=== PATIENT | female | born 1950 | race Caucasian/White ===

== ENCOUNTER → 2016-07-26 | Outpatient (CLI) | payer BC ==
[2016-07-26 10:47] LABS: Basophils # (A) 0.1 k/uL (0-0.2); Basophils % (A) 1 %; CH 29.2; CHCM 33.7; Eosinophils # (A) 0.1 k/uL (0-0.7); Eosinophils % (A) 4 %; HCT 41.5 % (34.0-46.0); HDW 2.55; HGB 13.5 gm/dL (11.4-16.0); Luc # (Auto) 0.08; Luc % (Auto) 2; Lymphocytes # (A) 1.1 k/uL (1.0-4.8); Lymphocytes % (A) 30 %; MCH 28.4 pg (25.0-35.0); MCHC 32.5 g/dL (31.0-37.0); MCV 87.2 fL (80.0-100.0); Mean Platelet Volume 7.4; Monocytes # (A) 0.3 k/uL (0-1.0); Monocytes % (A) 7 %; Neutrophils # (A) 2.1 k/uL (1.3-7.7); Neutrophils % (A) 57 %; RBC 4.77 m/uL (3.80-5.40); RDW 12.6 % (11.5-15.5); WBC 3.7 k/uL (3.8-10.6); WBC (Perox) 3.88
[2016-07-26 12:04] LABS: ALT 36 U/L (9-52); AST 27 U/L (14-36); Alkaline Phosphatase 68 U/L (38-126); Anion Gap 7 mmol/L; Blood Urea Nitrogen 17 mg/dL (7-17); Calcium 9.5 mg/dL (8.4-10.2); Carbon Dioxide 33 mmol/L (22-30); Chloride 102 mmol/L (98-107); Glucose 101 mg/dL (74-99); Iron 85 ug/dL (37-170); Non-African American GFR(MDRD) >60 (>60 ml/min/1.73 sqM); Potassium 4.6 mmol/L (3.5-5.1); Sodium 142 mmol/L (137-145); Total Bilirubin 0.4 mg/dL (0.2-1.3); Total Protein 6.2 g/dL (6.3-8.2)
[2016-07-26 12:14] LABS: Total Iron Binding Capacity 285 ug/dL (265-497)
[2016-07-26 12:55] LABS: Vitamin B12 645 pg/mL (239-931)
== END | disposition home or self-care (01) ==
LOC: LABWHC1 10:06
PROVIDERS: ATTEND Family Medicine
DX: M85.9 Disorder of bone density and structure, unspecified (principal); D51.9 Vitamin B12 deficiency anemia, unspecified; I10 Essential (primary) hypertension
CPT/HCPCS: 36415; 80053; 82306; 82607; 83540; 83550; 84439; 84443; 85025

== ENCOUNTER 2016-09-18 12:27 | Emergency (ER) | payer BC ==
[2016-09-18 12:38] VITALS: RESP 18
--- NOTE | 2016-09-18 13:45 | ED ---
General Adult HPI - General Chief complaint: Neuro Symptoms/Deficit Stated complaint: Hand/Facial Numbness Time Seen by Provider: 09/18/16 13:11 Source: patient Mode of arrival: ambulatory Limitations: no limitations - History of Present Illness Initial comments: 6-year-old white female presents complaining of some bilateral hand numbness and tingling as well as some numbness and tingling around her chin and lips. The symptoms have been present for approximately one week. She denies any weakness of extremities, problems with ambulation, coordination, speech abnormalities, or vision abnormalities. She denies any other neurologic signs or symptoms. She states that she was on Levaquin this past week for sinus infection and stopped this 3 days ago but her symptoms still have persisted. She was unsure if it was related to the Levaquin. She also has had some mild nausea but no vomiting. She relates a history of insomnia. She was taking Klonopin 2 mg every at bedtime for this but stopped 2 months ago. Since that time she is only beginning 2-3 hours of sleep per night. She did try some trazodone yesterday but still only had 3 hours of sleep. She denies any other complaints or modifying factors. She denies any anxiety. She did have an MRI of her neck and brain proximally 6 months ago and brings a report with her. This does show evidence of a arachnoid cyst as well as degenerative changes of the cervical spine and chronic small vessel ischemic changes of the brain. - Related Data Allergies Allergy/AdvReac Type Severity Reaction Status Date / Time latex Allergy Unknown Verified 09/18/16 14:43 Review of Systems ROS Statement: Those systems with pertinent positive or pertinent negative responses have been documented in the HPI. ROS Other: All systems not noted in ROS Statement are negative. Past Medical History Past Medical History: Hypertension Additional Past Medical History / Comment(s): mitral valve prolapse sleeping issues History of Any Multi-Drug Resistant Organisms: None Reported Past Surgical History: Orthopedic Surgery Additional Past Surgical History / Comment(s): shoulder/rotator cuff Past Psychological History: No Psychological Hx Reported Smoking Status: Never smoker Past Alcohol Use History: Rare Past Drug Use History: None Reported General Exam - General Exam Comments Initial Comments: GENERAL: The patient is well nourished and well hydrated. VITAL SIGNS: Heart rate, blood pressure, respiratory rate reviewed as recorded in nurse's notes. EYES: Pupils are round and reactive. Extraocular movements are intact. No conjunctival / lid redness or swelling. ENT: No external evidence of injury, swelling, or ecchymosis. Airway is patent. Throat is clear. NECK: Mild tenderness to her neck diffusely which is chronic per patient. No swelling or evidence of injury. No subcutaneous emphysema. Trachea is midline. No thyroid mass. HEART: Regular rate and rhythm. Good peripheral pulses. LUNGS/CHEST: Breath sounds clear and equal bilaterally. No rales, rhonchi, or wheezes. No ecchymosis, subcutaneous emphysema, or tenderness. ABDOMEN: Abdomen soft without tenderness. No palpable masses or organomegaly. No peritoneal signs. No abdominal wall swelling or ecchymosis. EXTREMITIES: No extremity tenderness. Normal muscle tone and function. No thoracolumbar tenderness. There is some subjective numbness in the perioral region and bilateral hands. NEUROLOGIC: Sensation is grossly intact. Cranial nerve exam reveals face is symmetrical, tongue is midline, speech is clear. SKIN: No abrasions or ecchymosis is noted. No induration or masses noted. PSYCHIATRIC: Alert and oriented. Appropriate behavior and judgment. Limitations: no limitations Course Vital Signs 09/18/16 12:34 Temperature 99.3 F Pulse Rate 64 Respiratory 18 Rate Blood Pressure 128/59 O2 Sat by Pulse 96 Oximetry Medical Decision Making - Medical Decision Making The patient was seen and examined. All diagnostics were reviewed. EKG shows a sinus bradycardia at a rate of 56. There is no acute ST-T wave changes identified. There is a left axis deviation and nonspecific intraventricular block. The UT interval is 204, QRS duration is 132, and QTc interval is 463. The laboratory is reviewed and is fairly unremarkable. The computed tomography scan of the brain did not show any acute process. The exact cause of her paresthesias are not definitively determined. It may be playing into anxiety as well as her insomnia. Is felt as though she is stable for discharge and follow-up with her primary doctor. Is also felt as though she may benefit from neurology evaluation. She apparently did try to get into a neurologist but there is a 2 month weight. They are requesting additional neurologist to attempt to follow-up with sooner. - Lab Data Result diagrams: 09/18/16 13:35 09/18/16 13:35 Lab Results 09/18/16 09/18/16 Range/Units 13:35 13:35 WBC 5.3 (3.8-10.6) k/uL RBC 4.73 (3.80-5.40) m/uL Hgb 13.9 (11.4-16.0) gm/dL Hct 41.1 (34.0-46.0) % MCV 87.0 (80.0-100.0) fL MCH 29.5 (25.0-35.0) pg MCHC 33.9 (31.0-37.0) g/dL RDW 12.9 (11.5-15.5) % Plt Count 205 (150-450) k/uL Neutrophils % 59 % Lymphocytes % 28 % Monocytes % 6 % Eosinophils % 3 % Basophils % 1 % Neutrophils # 3.1 (1.3-7.7) k/uL Lymphocytes # 1.5 (1.0-4.8) k/uL Monocytes # 0.3 (0-1.0) k/uL Eosinophils # 0.2 (0-0.7) k/uL Basophils # 0.0 (0-0.2) k/uL Sodium 140 (137-145) mmol/L Potassium 4.8 (3.5-5.1) mmol/L Chloride 100 (98-107) mmol/L Carbon Dioxide 31 H (22-30) mmol/L Anion Gap 9 mmol/L BUN 14 (7-17) mg/dL Creatinine 0.86 (0.52-1.04) mg/dL Est GFR (MDRD) Af Amer >60 (>60 ml/min/1.73 sqM) Est GFR (MDRD) Non-Af >60 (>60 ml/min/1.73 sqM) Glucose 92 (74-99) mg/dL Calcium 9.5 (8.4-10.2) mg/dL Phosphorus 4.3 (2.5-4.5) mg/dL Magnesium 2.2 (1.6-2.3) mg/dL Total Bilirubin 0.6 (0.2-1.3) mg/dL AST 29 (14-36) U/L ALT 26 (9-52) U/L Alkaline Phosphatase 72 (38-126) U/L Total Protein 6.9 (6.3-8.2) g/dL Albumin 4.3 (3.5-5.0) g/dL Disposition Clinical Impression: Paresthesias, Insomnia Disposition: HOME SELF-CARE Condition: Good Instructions: Paresthesia (ED), Insomnia (ED) Additional Instructions: You also may try to follow up with either Dr. Ortiz or Dr. Maki from neurology and see if you can get in sooner. You may call to be transferred to their office. Referrals: Terri Sun MD [Primary Care Provider] - 1-2 days Heather Pino MD [STAFF PHYSICIAN] - 09/22/16 Time of Disposition: 14:44
[2016-09-18 13:53] LABS: Basophils % (A) 1 %; CH 29.7; CHCM 34.3; Eosinophils # (A) 0.2 k/uL (0-0.7); Eosinophils % (A) 3 %; HCT 41.1 % (34.0-46.0); HDW 2.53; HGB 13.9 gm/dL (11.4-16.0); Luc # (Auto) 0.19; Luc % (Auto) 4; Lymphocytes # (A) 1.5 k/uL (1.0-4.8); Lymphocytes % (A) 28 %; MCH 29.5 pg (25.0-35.0); MCHC 33.9 g/dL (31.0-37.0); Mean Platelet Volume 7.6; Monocytes # (A) 0.3 k/uL (0-1.0); Monocytes % (A) 6 %; Neutrophils # (A) 3.1 k/uL (1.3-7.7); Neutrophils % (A) 59 %; RBC 4.73 m/uL (3.80-5.40); RDW 12.9 % (11.5-15.5); WBC 5.3 k/uL (3.8-10.6); WBC (Perox) 5.44
--- NOTE | 2016-09-18 13:58 | CT ---
EXAMINATION TYPE: CT brain wo con DATE OF EXAM: 09/18/2016 1:49 PM COMPARISON: NONE HISTORY: Patient complains of bilateral hand, chin, and lip numbness. CT DLP: 1001.8 mGycm. Automated Exposure Control for Dose Reduction was Utilized. TECHNIQUE: CT scan of the head is performed without contrast. FINDINGS: There is no acute intracranial hemorrhage, mass effect, or midline shift identified. The ventricles and sulci are within normal limits in size. Burgos-white matter differentiation is maintain ed. The globes are intact and the visualized sinuses are clear. IMPRESSION: No acute intracranial hemorrhage, mass effect, or midline shift is seen. If clinical con cern for acute stroke persists further investigation with MRI study may be warranted.
[2016-09-18 14:02] LABS: ALT 26 U/L (9-52); AST 29 U/L (14-36); Alkaline Phosphatase 72 U/L (38-126); Anion Gap 9 mmol/L; Blood Urea Nitrogen 14 mg/dL (7-17); Calcium 9.5 mg/dL (8.4-10.2); Carbon Dioxide 31 mmol/L (22-30); Chloride 100 mmol/L (98-107); Glucose 92 mg/dL (74-99); Magnesium 2.2 mg/dL (1.6-2.3); Non-African American GFR(MDRD) >60 (>60 ml/min/1.73 sqM); Phosphorous 4.3 mg/dL (2.5-4.5); Potassium 4.8 mmol/L (3.5-5.1); Sodium 140 mmol/L (137-145); Total Bilirubin 0.6 mg/dL (0.2-1.3); Total Protein 6.9 g/dL (6.3-8.2)
[2016-09-18 15:03] VITALS: BP 152/75; PULSE 67; TEMP 97.6
== END 2016-09-18 15:03 | disposition home or self-care (01) ==
LOC: EC 12:27
DX: G47.00 Insomnia, unspecified (principal); R20.2 Paresthesia of skin; R00.1 Bradycardia, unspecified; I45.4 Nonspecific intraventricular block; I10 Essential (primary) hypertension; I34.1 Nonrheumatic mitral (valve) prolapse; Z79.899 Other long term (current) drug therapy; Z91.040 Latex allergy status
CPT/HCPCS: 36415; 70450; 80053; 83735; 84100; 85025; 93005; 99284

== ENCOUNTER → 2016-10-04 | Outpatient (CLI) | payer BC ==
--- NOTE | 2016-10-04 15:40 | US ---
EXAMINATION TYPE: US carotid duplex BILAT DATE OF EXAM: 10/04/2016 3:13 PM COMPARISON: NONE CLINICAL HISTORY: R20.0 FACIAL NUMBNESS. bilateral hand numbness EXAM MEASUREMENTS: RIGHT: Peak Systolic Velocity (PSV) cm/sec ----- Right CCA: 101.1 ----- Right ICA: 114.2 ----- Right ECA: 116.0 ICA/CCA ratio: 1.1 RIGHT: End Diastole cm/sec ----- Right CCA: 31.4 ----- Right ICA: 35.7 ----- Right ECA: 116.0 LEFT: Peak Systolic Velocity (PSV) cm/sec ----- Left CCA: 84.5 ----- Left ICA: 87.5 ----- Left ECA: 82.0 ICA/CCA ratio: 1.0 LEFT: End Diastole cm/sec ----- Left CCA: 25.9 ----- Left ICA: 35.7 ----- Left ECA: 13.8 VERTEBRALS (direction of flow): Right Vertebral: Antegrade Left Vertebral: Antegrade TECHNOLOGIST IMPRESSION: No significant stenosis seen, no elevated velocities. Grayscale, color Doppler, spectral Doppler imaging performed of the carotid arteries. Waveform analys is does not show significant stenosis of the proximal internal carotid arteries by Doppler criteria. IMPRESSION: No hemodynamic significant stenosis of the proximal internal carotid arteries bilaterall y by Doppler criteria, an indirect measurement of carotid stenosis
== END | disposition home or self-care (01) ==
LOC: RADUSWWP 14:53
PROVIDERS: ATTEND Psychiatry & Neurology Neurology
DX: R20.0 Anesthesia of skin (principal)
CPT/HCPCS: 93880

== ENCOUNTER → 2016-10-04 | Outpatient (CLI) | payer BC ==
--- NOTE | 2016-10-04 14:55 | CONS ---
DATE OF CONSULTATION: 10/04/2016 CONSULTATION/NEW PATIENT EVALUATION: A 66-year-old lady who has been evaluated in the [facility] for sleep problems. HISTORY OF PRESENT ILLNESS/SLEEP-WAKE EVALUATION: Patient developed her sleep problems for about 5 years. At that time, she already was in a menopause state. SLEEP SCHEDULE: Presently, she goes to bed around 11 p.m. and gets up out of bed around 7 - 8 a.m. FALLING ASLEEP: She has problem with falling asleep, previously was treated with clonazepam with a pretty high dose up to 2 mg and presently for the last 10 days she is on Temazepam. With Temazepam she was able to fall asleep well now. DURING SLEEP: She does not snore according to her but sometimes may wake up several times during the night. DURING THE DAY/WAKE STATE: Usually she feels tired in the morning. She worries about her sleep. She normally does not take any naps during the day. No history of hypnagogical hallucinations, sleep paralysis or cataplexy. [place] Sleepiness Scale is 2. PAST MEDICAL HISTORY: Positive for mitral valve prolapse, LBBB, shoulder problems. PAST SURGICAL HISTORY: Right shoulder rotator cuff surgery on 05/23/2016. SOCIAL HISTORY: Negative for smoking. Alcohol consumption occasional. MEDICATIONS: 1. Atenolol. 2. Prempro. 3. Temazepam. REVIEW OF SYSTEMS: Difficulties to initiate sleep, awakenings from sleep. sometimes feeling tiredness after awakenings in the morning. FAMILY HISTORY: Hypertension, arthritis, cancer. PHYSICAL EXAMINATION: GENERAL: A 66-year-old ago lady without distress. BP 137/68, HR 57, RR 16. Height 64 inches. Weight 128.2. BMI 21.9. Neck 13-1/2 inches in circumference. Temperature 97.5. Oxygen saturation at room air 100%. Oropharynx retrognathia 4 mm, low position of soft palate. NECK: Supple. No JVD. Thyroid is not palpable. LUNGS: Clear to percussion and to auscultation. Good air exchange. No wheezing or rhonchi. HEART: S1, S2 regular. No murmurs, gallops or rubs. ABDOMEN: Soft and nontender. Bowel sounds are present. No organomegaly appreciated. EXTREMITIES: No clubbing or cyanosis. MORTGAGE LOAN REVIEWER: Awake, alert, and oriented x3. Cranial nerves 2 to 7 intact. There is no fasciculation or atrophy noted. No focal deficits observed. IMPRESSION: 1. Psychophysiological insomnia. 2. Low position of soft palate, retrognathia, awakenings from sleep, rule out obstructive sleep apnea. 3. Menopause. 4. Mitral valve prolapse. 5. History of LBBB. 6. Status post right rotator cuff surgery on 05/23/16. PLAN: 1. I discussed with the patient behavioral techniques for treatment of insomnia, including stimulus control. 2. Paradoxical intention. 3. Worry time. 4. Sleep restriction therapy. Patient should not watch clock during the night. We discussed to use additional literature. Thank you very much for referring this patient for consultation. Sincerely, Pipo Harris MD, PhD, FAASM. Diplomat of [place] [employer], Sleep Medicine Board by [place] [employer] [place] [employer] [facility] [place]
== END | disposition home or self-care (01) ==
LOC: SLEEP 10:02
PROVIDERS: ATTEND Internal Medicine
DX: F51.04 Psychophysiologic insomnia (principal); I34.1 Nonrheumatic mitral (valve) prolapse; I44.7 Left bundle-branch block, unspecified; Z78.0 Asymptomatic menopausal state; Z79.899 Other long term (current) drug therapy
CPT/HCPCS: 99211

== ENCOUNTER → 2016-11-10 | Outpatient (CLI) | payer BC ==
[2016-11-10 08:33] LABS: Basophils % (A) 1 %; CH 29.2; CHCM 33.6; Eosinophils # (A) 0.2 k/uL (0-0.7); Eosinophils % (A) 5 %; HCT 40.3 % (34.0-46.0); HDW 2.36; HGB 13.3 gm/dL (11.4-16.0); Luc # (Auto) 0.14; Luc % (Auto) 3; Lymphocytes # (A) 1.4 k/uL (1.0-4.8); Lymphocytes % (A) 30 %; MCH 28.9 pg (25.0-35.0); MCV 87.4 fL (80.0-100.0); Mean Platelet Volume 6.8; Monocytes # (A) 0.3 k/uL (0-1.0); Monocytes % (A) 6 %; Neutrophils # (A) 2.5 k/uL (1.3-7.7); Neutrophils % (A) 55 %; RBC 4.61 m/uL (3.80-5.40); RDW 12.8 % (11.5-15.5); WBC 4.6 k/uL (3.8-10.6); WBC (Perox) 4.58
[2016-11-10 11:44] LABS: Vitamin B12 351 pg/mL (239-931)
[2016-11-10 12:05] LABS: ALT 31 U/L (9-52); AST 31 U/L (14-36); Alkaline Phosphatase 74 U/L (38-126); Anion Gap 7 mmol/L; Blood Urea Nitrogen 12 mg/dL (7-17); Calcium 9.6 mg/dL (8.4-10.2); Carbon Dioxide 32 mmol/L (22-30); Chloride 102 mmol/L (98-107); Cholesterol 203 mg/dL (<200); Glucose 101 mg/dL (74-99); HDL Cholesterol 64 mg/dL (40-60); Non-African American GFR(MDRD) 53 (>60 ml/min/1.73 sqM); Potassium 4.9 mmol/L (3.5-5.1); Sodium 141 mmol/L (137-145); Total Bilirubin 0.7 mg/dL (0.2-1.3); Total Protein 6.9 g/dL (6.3-8.2); Triglycerides 113 mg/dL (<150)
[2016-11-10 12:53] LABS: Iron 93 ug/dL (37-170)
[2016-11-10 13:02] LABS: % Iron Saturation 30.8 % (20-50); Total Iron Binding Capacity 302 ug/dL (265-497)
== END ==
LOC: LABWHC1 07:51
PROVIDERS: ATTEND Nurse Practitioner Family
DX: F51.01 Primary insomnia (principal); I10 Essential (primary) hypertension; D51.9 Vitamin B12 deficiency anemia, unspecified
CPT/HCPCS: 36415; 80053; 80061; 82607; 83540; 83550; 84439; 84443; 85025

== ENCOUNTER → 2016-11-24 | Outpatient (CLI) | payer BC ==
[2016-11-24 15:35] LABS: ANA w/Reflex to Titer POSITIVE (NEGATIVE)
[2016-11-27 15:25] LABS: C-ANCA <1:20 Titer (<1:20); P-ANCA <1:20 Titer (<1:20)
== END | disposition home or self-care (01) ==
LOC: LABWHC1 07:06
PROVIDERS: ATTEND Nurse Practitioner Family
DX: J01.91 Acute recurrent sinusitis, unspecified (principal); J31.1 Chronic nasopharyngitis
CPT/HCPCS: 36415; 84165; 86038; 86039; 86235; 86255; 86334

== ENCOUNTER → 2016-11-30 | Outpatient (CLI) | payer BC ==
--- NOTE | 2016-11-30 14:07 | FL ---
EXAMINATION: Cervical and Thoracic Esophagram DATE OF EXAM: 11/30/2016 10:11 AM CLINICAL INDICATION: 66-year-old female with her somatoform disorder. Difficulty swallowing last week , improved now. COMPARISON: None Total Fluoroscopy Time: 1 minute 42 seconds FINDINGS: The swallowing mechanism is normal and hypopharyngeal anatomy is preserved. The cervical and thoracic portions have a normal course and caliber. There are blunted secondary wave s with prolonged pooling of contrast within the esophagus even when the patient is brought upright. M oderate tertiary peristaltic contractions are demonstrated. The mucosa is normal and no persistent filling defect is encountered. No hiatal hernia is present. No gastroesophageal reflux could be elicited with Valsalva or positiona l maneuvers. IMPRESSION: Findings suggest early presbyesophagus. This results in prolonged pooling of contrast in the esophagu s even with the patient is brought upright.
== END | disposition home or self-care (01) ==
LOC: RADFLWHC 09:38
PROVIDERS: ATTEND Otolaryngology
DX: R13.10 Dysphagia, unspecified (principal)
CPT/HCPCS: 74220

== ENCOUNTER 2016-12-07 09:01 | Day surgery (SDC) | payer BC ==
[2016-12-01 11:26] VITALS: BMI 20.7
[~2016-12-07 09:01] MED LIST: ACETAMINOPHEN TAB 500 MG TAB PO ONE; DEXAMETHASONE SOD PHOSPHATE 10 MG/ML 1 ML VIAL IV ONE; DEXAMETHASONE SOD PHOSPHATE 4 MG/ML 1 ML VIAL IV ONE; FAMOTIDINE 20 MG/2 ML VIAL IV ONE; LACTATED RINGERS 1,000 ML IV SCH; LIDOCAINE 1% 20 ML VIAL (10MG/ML) FOR IV START INTRADERMA PRN; MIDAZOLAM 2 MG/2 ML VIAL IV PRN; ONDANSETRON 4 MG/2 ML VIAL IVP ONE; SCOPOLAMINE 1.5MG/72HR PATCH TRANSDERM ONE
[2016-12-07] MEDS: OXYMETAZOLINE 0.05% NASL SPRAY 15 ML NASAL ONE ×3 (09:17→09:43)
[2016-12-07] MEDS: CLINDAMYCIN 600 MG in DEXTROSE 5% IN WATER 50 ML IVPB ONE ×4 (10:36→11:10)
[2016-12-07] MEDS ORDERED: MIDAZOLAM 2 MG/2 ML VIAL ONE (10:36)
[2016-12-07] MEDS ORDERED: PROPOFOL 10 MG/ML 20 ML VIAL IV ONE (10:36)
[2016-12-07] MEDS ORDERED: ePHEDrine 50 MG/ML 1 ML AMP ONE (10:36)
[2016-12-07] MEDS ORDERED: fentaNYL (PF) 50 MCG/ML 2 ML AMP ONE (10:36)
[2016-12-07] MEDS ORDERED: DEXAMETHASONE SOD PHOS (MDV) 100 MG/10 ML VIAL ONE (10:36)
[2016-12-07] MEDS ORDERED: LIDOCAINE 1% INJ 10MG/ML (20 ML MDV) ONE (10:36)
[2016-12-07] MEDS ORDERED: SUCCINYLCHOLINE CHLORIDE 100 MG/5 ML SYR IV ONE (10:36)
[2016-12-07] MEDS ORDERED: LIDOCAINE 1%-EPI 1:100,000 20 ML VIAL SQ ONE ×2 (11:37)
[2016-12-07] MEDS ORDERED: BUPIVACAIN-EPI 0.5%-1:200,000 30 ML VIAL SQ ONE ×2 (11:37)
[2016-12-07] MEDS ORDERED: FLUORESCEIN STRIPS 1 MG STRIP MISCELLANE ONE (11:38)
[2016-12-07] MEDS ORDERED: EPINEPHrine 1 MG/ML (MDV) 30 ML VIAL TOPICAL ONE (11:38)
[2016-12-07] MEDS ORDERED: LACTATED RINGERS 1,000 ML IV ONE (11:47)
[2016-12-07 12:30] VITALS: TEMP 97.1
[2016-12-07 12:32] VITALS: RESP 16
[2016-12-07] MEDS: HYDROmorphone 1 MG/ML 1 ML SYRINGE IVP PRN ×2 (12:47→12:58)
--- NOTE | 2016-12-07 12:47 | P.OP ---
Date of Procedure: 12/07/16 Preoperative Diagnosis: Deviated nasal septum Chronic sinusitis Bilateral hypertrophy of nasal turbinates left maxillary sinus polyp Postoperative Diagnosis: Same Procedure(s) Performed: Septoplasty Bilateral submucosal resection of the inferior turbinates with outfracture Bilateral functional endoscopic sinus surgery with removal of a left maxillary sinus polyp Implants: Anesthesia: DASHAA Surgeon: Eliezer Torres Estimated Blood Loss (ml): 20 Pathology: other (Sinonasal with a left maxillary sinus polyp) Condition: stable Disposition: PACU Indications for Procedure: This patient presented to the office with persistent sinusitis he has facial pain pressure drainage left maxillary sinus polyp chronic sinus disease patient also has a mucosal contact point-type headache with the septal spur and her problems have been persistent. In spite of medical therapy trigeminal nerve injections etc. her problems are persistent. After long discussion we decided to proceed forward with endoscopic sinus surgery with removal of a left maxillary sinus polyp septoplasty and turbinate surgery. All risks, benefits, and alternative therapies were discussed in detail. The patient also has anosmia and is hoping that this helps her sense of smell. She is also understanding that the facial pain may persist after surgery in spite of opening the sinuses. She understands all these issues and consent was obtained. Operative Findings: Patient had a left maxillary sinus polyp a large left septal spur that was coming in contact is a mucosal contact point and evidence of widespread inflammatory changes. Description of Procedure: This patient was taken to the operative room and placed in the supine position. A general inhalation anesthetic was administered to the patient by the department of anesthesia with a functioning IV line in place. The patient was monitored throughout the entire case by the department of anesthesia. The eyes were taped shut for protection. The patient was placed in a slight reverse Trendelenburg position. The patient had previously utilize Afrin nasal spray preoperatively. The nose was evaluated and the septum lateral nasal wall and inferior turbinates were injected with lidocaine 1% with epinephrine 1 100,000 bilaterally. Approximately 10 minutes were allowed wait for full vasoconstrictive effects to take place. At this point a caudal incision was made over the caudal portion of the left septum down to the mucoperichondrium. A mucoperichondrial flap was elevated on the left side and dissection was carried with use of tunnels posteriorly. We then made a crossover incision through the cartilage to the contralateral side and for the mucoperichondrial flap development was performed to the extent of visualization on the contralateral side. After the cartilage was freed with use of several crosshatching incisions and removal of some redundant strips of septal cartilage, the septum was straightened and placed back in the midline. The septum was sutured fixated to the ovarian groove. Excellent straightening occurred and the septum was visibly straight. Incision was closed with a 40 rapid Vicryl. We utilized a running nonlocking fashion for closure of the incision. A quilting stitch was used to reapproximate the septal flaps with use of a 40 rapid Vicryl. We then entered the nose with a 0 and 30 Gomes rosalind endoscope. Previous to this we did inject the lateral nasal wall and middle turbinate and uncinate process with lidocaine 1% with epinephrine 1 100,000. Approximately 10 minutes were allowed wait for full vasoconstrictive effects to take place. With use of a microdebrider and a pediatric backbiter, we took down the uncinate process bilaterally. We then opened the maxillary sinuses bilaterally. We utilized a microdebrider for this and entered the maxillary sinuses and removed diseased tissue. This was done bilaterally. We identified a left maxillary polyp and remove that polyp. After the maxillary sinuses were opened and the diseased tissue was removed we entered the ethmoid bulla and with use of a microdebrider and up-biting saads and Vish, we followed the fovea frontalis through the basal lamella and into the posterior ethmoid air cells and did a total ethmoidectomy. We removed the anterior ethmoid air cells with use of a microdebrider and up-biting boss. After all the anterior ethmoid air cells were removed we did the same in the posterior ethmoid. A total ethmoidectomy was completed in that fashion with removal of all the anterior and posterior ethmoid air cells and diseased tissue. Once the ethmoids cells were all taken down we then entered the sphenoid sinus medially and inferiorly underneath the inferior attachment of the superior turbinate. The sphenoid sinus was opened entered and diseased tissue was removed bilaterally. This was done with a microdebrider and Blakesley. We then entered the frontal sinuses with a giraffe and up-biting Blakesley entered on the agar nasi cells. We open the frontal sinuses and removed sinus tissue that was diseased. We explored the frontal sinuses bilaterally. To summarize all sinuses were open all sinuses were explored and we remove diseased tissue from the sphenoid maxillary and frontal sinuses. Ethmoid sinuses were opened totally. Xerogel was inserted and minimal bleeding was encountered. We reinspected the skull base there is no signs of any orbital penetration or signs of any intracranial penetration. The sugical site was reinspected after the xerogel was placed and no bleeding was seen. Intranasal splints were inserted and fixated at the end of the case. We utilized Kelly nasal splints. There will be removed and the patient returns to the office. Attention was then paid to the inferior turbinates. The bilateral inferior turbinates were hypertrophic and obstructive. We entered the anterior portion of the inferior turbinates with use of a microdebrider. We remove bone and submucosal elements with use of a microdebrider bilaterally. The inferior turbinates underwent a submucosal resection with removal of submucosal tissue and bone. We obtained a much better and normal in size for breathing. The inferior turbinates were then outfractured and compressed with a Boyes nasal elevator. Excellent airway was obtained and was symmetric bilaterally. No bleeding was encountered.
[2016-12-07] MEDS ORDERED: OXYMETAZOLINE 0.05% NASL SPRAY 15 ML ONE (14:01)
[2016-12-07 14:23] VITALS: BP 132/72; PULSE 81
== END 2016-12-07 15:17 | disposition home or self-care (01) ==
LOC: OR 09:01
PROVIDERS: ATTEND Otolaryngology
DX: J34.2 Deviated nasal septum (principal); J32.9 Chronic sinusitis, unspecified; J34.3 Hypertrophy of nasal turbinates; J33.8 Other polyp of sinus; J34.89 Other specified disorders of nose and nasal sinuses; I10 Essential (primary) hypertension; Z79.899 Other long term (current) drug therapy; Z91.040 Latex allergy status
CPT/HCPCS: 88305; 88300; 30520; 31267; 31255; 31288; 31276; 30140; J0171; J2250; J1100 ×2; J2405; J2001; J3010; J1170; J0330; J2704

== ENCOUNTER → 2017-01-12 | Outpatient (CLI) | payer BC | END | disposition home or self-care (01) | LOC: LABWHC1 12:40 | PROVIDERS: ATTEND Internal Medicine Infectious Disease | DX: D80.1 Nonfamilial hypogammaglobulinemia (principal) | CPT/HCPCS: 36415; 82164; 82784; 85652 ==

== ENCOUNTER → 2017-02-26 | Outpatient (CLI) | payer BC ==
[2017-02-26 17:48] LABS: RNP AB Interpretation POSITIVE (NEGATIVE); Scleroderma SC-70 Ab Interp NEGATIVE (NEGATIVE)
== END | disposition home or self-care (01) ==
LOC: LABWHC1 10:30
PROVIDERS: ATTEND Family Medicine
DX: F51.01 Primary insomnia (principal); D80.1 Nonfamilial hypogammaglobulinemia
CPT/HCPCS: 36415; 82607; 84165; 86235

== ENCOUNTER → 2017-03-29 | Outpatient (CLI) | payer BC, MEDICARE ==
--- NOTE | 2017-03-30 09:28 | MM ---
Reason for exam: screening (asymptomatic). Last mammogram was performed 1 year and 2 months ago. History: Patient is postmenopausal. Benign ultrasound-guided FNA biopsy of the right breast, May 14, 2007. Benign US right guided mammotome of the right breast, May 14, 2007. Benign stereotactic core biopsy of the right breast, August 19, 1999. Core biopsy of the right breast. 2 excisional biopsies of the right breast. Took estrogen. Took progesterone beginning at age 53. Taking other hormone for 1 month beginning at age 58. Physical Findings: A clinical breast exam by your physician is recommended on an annual basis and results should be correlated with mammographic findings. MG 3D Screening Mammo W/Cad Bilateral CC and MLO view(s) were taken. Prior study comparison: January 27, 2016, bilateral MG 3d screening mammo w/cad. December 24, 2014, bilateral MG screening mammo w CAD. The breast tissue is extremely dense which could obscure a lesion on mammography. Previous mammotome biopsy in the right breast x 2. No significant changes when compared with prior studies. ASSESSMENT: Benign, BI-RAD 2 RECOMMENDATION: Routine screening mammogram of both breasts in 1 year.
== END | disposition home or self-care (01) ==
LOC: RADMAMWWP 09:44
PROVIDERS: ATTEND Obstetrics & Gynecology
DX: Z12.31 Encounter for screening mammogram for malignant neoplasm of breast (principal)
CPT/HCPCS: 77063; G0202

== ENCOUNTER → 2017-11-06 | Outpatient (CLI) | payer MEDICARE ==
[2017-11-06 09:43] LABS: Basophils % (A) 1 %; Eosinophils # (A) 0.2 k/uL (0-0.7); Eosinophils % (A) 3 %; HCT 40.7 % (34.0-46.0); HGB 13.8 gm/dL (11.4-16.0); Lymphocytes # (A) 1.2 k/uL (1.0-4.8); Lymphocytes % (A) 27 %; MCH 28.7 pg (25.0-35.0); MCHC 33.8 g/dL (31.0-37.0); Mean Platelet Volume 6.9; Monocytes # (A) 0.2 k/uL (0-1.0); Monocytes % (A) 5 %; Neutrophils # (A) 2.6 k/uL (1.3-7.7); Neutrophils % (A) 60 %; Platelet Count 213 k/uL (150-450); RBC 4.79 m/uL (3.80-5.40); RDW 12.9 % (11.5-15.5); WBC 4.4 k/uL (3.8-10.6)
[2017-11-06 09:53] LABS: Albumin 4.2 g/dL (3.5-5.0); Calcium 9.3 mg/dL (8.4-10.2); Potassium 4.5 mmol/L (3.5-5.1); Total Bilirubin 0.5 mg/dL (0.2-1.3); Total Protein 6.4 g/dL (6.3-8.2)
[2017-11-06 10:07] LABS: T4, Free (Free Thyroxine) 0.93 ng/dL (0.78-2.19)
[2017-11-06 15:59] LABS: Vitamin D 25 Hydroxy 24.9 ng/mL (30.0-100.0)
== END | disposition home or self-care (01) ==
LOC: LABWHC1 08:44
PROVIDERS: ATTEND Family Medicine
DX: M85.9 Disorder of bone density and structure, unspecified (principal); F51.01 Primary insomnia; N18.2 Chronic kidney disease, stage 2 (mild); I12.9 Hypertensive chronic kidney disease with stage 1 through stage 4 chronic kidney disease, or unspecified chronic kidney disease
CPT/HCPCS: 36415; 80053; 80061; 82306; 82550; 82607; 84439; 84443; 85025

== ENCOUNTER → 2018-04-01 | Outpatient (CLI) | payer MEDICARE ==
--- NOTE | 2018-04-02 09:26 | MM ---
Reason for exam: screening (asymptomatic). Last mammogram was performed 1 year ago. History: Patient is postmenopausal. Benign ultrasound-guided FNA biopsy of the right breast, May 14, 2007. Benign US right guided mammotome of the right breast, May 14, 2007. Benign stereotactic core biopsy of the right breast, August 19, 1999. Core biopsy of the right breast. 2 excisional biopsies of the right breast. Took estrogen. Took progesterone beginning at age 53. Taking other hormone for 1 month beginning at age 58. Physical Findings: A clinical breast exam by your physician is recommended on an annual basis and results should be correlated with mammographic findings. MG 3D Screening Mammo W/Cad Bilateral CC and MLO view(s) were taken. Prior study comparison: March 29, 2017, bilateral MG 3d screening mammo w/cad. January 27, 2016, bilateral MG 3d screening mammo w/cad. The breast tissue is heterogeneously dense. This may lower the sensitivity of mammography. No significant changes when compared with prior studies. ASSESSMENT: Benign, BI-RAD 2 RECOMMENDATION: Routine screening mammogram of both breasts in 1 year.
== END | disposition home or self-care (01) ==
LOC: RADMAMWWP 08:53
PROVIDERS: ATTEND Obstetrics & Gynecology
DX: Z12.31 Encounter for screening mammogram for malignant neoplasm of breast (principal)
CPT/HCPCS: 77063; 77067

== ENCOUNTER → 2018-07-04 | Outpatient (CLI) | payer MEDICARE ==
--- NOTE | 2018-07-04 12:09 | BD ---
EXAMINATION TYPE: Axial Bone Density DATE OF EXAM: 07/04/2018 CLINICAL HISTORY: Height: 64 inches Weight: 124 FRAX RISK QUESTIONS: Alcohol (3 or more units per day): no Family History (Parent hip fracture): no Glucocorticoids (More than 3mos): no (Ex: prednisone, prednisolone, methylprednisolone, dexamethasone, and hydrocortisone). History of Fracture in Adulthood: no Secondary Osteoporosis: 1. Type 1 Diabetes: no 2. Hyperthyroidism: no 3. Menopause before 45: no 4. Malnutrition: no 5. Chronic liver disease: no Rheumatoid Arthritis: no Current Tobacco Use: no RISK FACTORS HISTORY OF: Family History of Osteoporosis: unsure Active: yes Diet low in dairy products/other sources of calcium: no Postmenopausal woman: yes Take estrogen and/or progesterone medications: not now How long: about age [age] Lost more than 2 inches in height since high school: no Frequent falls: no Poor Health: no Hyperparathyroidism: no Adrenal Insufficiency: no MEDICATIONS: Osteoporosis Medications: no Additional Medications: Vitamin D & Calcium, blood pressure meds Additional History: EXAM MEASUREMENTS: Bone mineral densitometry was performed using the [employer] System. Bone mineral density as measured about the Lumbar spine is: ----- L1-L4(G/cm2): 0.977 T Score Values are as follows: ----- L2: -2.2 ----- L3: -1.2 ----- L4: -1.5 ----- L1-L4: -1.7 Bone mineral density has: Decreased -4.0% since study of: 01/27/2016 Bone mineral density about the R hip (g/cm2): 0.782 Bone mineral density about the L hip (g/cm2): 0.787 T Score values are as follows: -----R Neck: -1.8 -----L Neck: -1.8 -----R Total: -1.5 -----L Total: -1.6 Bone mineral density has: Decreased -2.0% since study of: 01/27/2016 IMPRESSION: Osteopenia. NOTE: T-SCORE=SD OF THE YOUNG ADULT MEAN.
== END | disposition home or self-care (01) ==
LOC: RADBDWWP 10:05
PROVIDERS: ATTEND Obstetrics & Gynecology
DX: M85.80 Other specified disorders of bone density and structure, unspecified site (principal)
CPT/HCPCS: 77080

== ENCOUNTER → 2019-05-13 | Outpatient (CLI) | payer MEDICARE ==
--- NOTE | 2019-05-16 10:47 | MM ---
Reason for exam: screening (asymptomatic). Last mammogram was performed 1 year and 1 month ago. History: Patient is postmenopausal. Benign ultrasound-guided FNA biopsy of the right breast, May 14, 2007. Benign US right guided mammotome of the right breast, May 14, 2007. Benign stereotactic core biopsy of the right breast, August 19, 1999. Core biopsy of the right breast. 2 excisional biopsies of the right breast. Took estrogen. Took progesterone beginning at age 53. Taking other hormone for 1 month beginning at age 58. Physical Findings: A clinical breast exam by your physician is recommended on an annual basis and results should be correlated with mammographic findings. MG 3D Screening Mammo W/Cad Bilateral CC and MLO view(s) were taken. Prior study comparison: April 01, 2018, bilateral MG 3d screening mammo w/cad. March 29, 2017, bilateral MG 3d screening mammo w/cad. The breast tissue is extremely dense which could obscure a lesion on mammography. Previous mammotome biopsy in the right breast x 2. No significant changes when compared with prior studies. ASSESSMENT: Benign, BI-RAD 2 RECOMMENDATION: Routine screening mammogram of both breasts in 1 year.
== END | disposition home or self-care (01) ==
LOC: RADMAMWWP 15:02
PROVIDERS: ATTEND Obstetrics & Gynecology
DX: Z12.31 Encounter for screening mammogram for malignant neoplasm of breast (principal)
CPT/HCPCS: 77063; 77067

== ENCOUNTER → 2020-07-05 | Outpatient (CLI) | payer MEDICARE ==
--- NOTE | 2020-07-06 14:55 | BD ---
EXAMINATION TYPE: Axial Bone Density DATE OF EXAM: 07/05/2020 COMPARISON: NONE CLINICAL HISTORY: M [age] Height: 64.5 Weight: 128.2 FRAX RISK QUESTIONS: Alcohol (3 or more units per day): no Family History (Parent hip fracture): no Glucocorticoids (More than 3mos): no (Ex: prednisone, prednisolone, methylprednisolone, dexamethasone, and hydrocortisone). History of Fracture in Adulthood: no Secondary Osteoporosis: 1. Type 1 Diabetes: no 2. Hyperthyroidism: no 3. Menopause before 45: no 4. Malnutrition: no 5. Chronic liver disease: no Rheumatoid Arthritis: no Current Tobacco Use: no RISK FACTORS HISTORY OF: Family History of Osteoporosis: yes Active: yes Diet low in dairy products/other sources of calcium: no Postmenopausal woman: age 54 Lost more than 2 inches in height since high school: no MEDICATIONS: atenolol, amalodapene Additional History: EXAM MEASUREMENTS: Bone mineral densitometry was performed using the [employer] System. Bone mineral density as measured about the Lumbar spine is: ----- L1-L4(G/cm2): 0.985 T Score Values are as follows: ----- L2: -1.9 ----- L3: -1.3 ----- L4: -1.5 ----- L1-L4: -1.6 Bone mineral density has: decreased -4.0 % since study of: 07.04.2018 Bone mineral density about the R hip (g/cm2): 0.751 Bone mineral density about the L hip (g/cm2): 0.792 T Score values are as follows: -----R Neck: -2.1 -----L Neck: -1.8 -----R Total: -1.6 -----L Total: -1.8 Bone mineral density has: decreased -2.6 % since study of: 07.04.2018 IMPRESSION: Osteopenia (T Score between -2.5 and -1). There is slightly increased risk of fracture and the patient may be considered for treatment. Re-Screen 2-5 years. NOTE: T-SCORE=SD OF THE YOUNG ADULT MEAN.
== END | disposition home or self-care (01) ==
LOC: RADBDWWP 15:48
PROVIDERS: ATTEND Obstetrics & Gynecology
DX: M85.80 Other specified disorders of bone density and structure, unspecified site (principal)
CPT/HCPCS: 77080

== ENCOUNTER → 2020-07-05 | Outpatient (CLI) | payer MEDICARE ==
--- NOTE | 2020-07-06 13:34 | MM ---
Reason for exam: screening (asymptomatic). Last mammogram was performed 1 year and 2 months ago. History: Patient is postmenopausal. Benign ultrasound-guided FNA biopsy of the right breast, May 14, 2007. Benign US right guided mammotome of the right breast, May 14, 2007. Benign stereotactic core biopsy of the right breast, August 19, 1999. Core biopsy of the right breast. 2 excisional biopsies of the right breast. Took estrogen. Took progesterone beginning at age 53. Taking other hormone for 1 month beginning at age 58. Physical Findings: A clinical breast exam by your physician is recommended on an annual basis and results should be correlated with mammographic findings. MG 3D Screening Mammo W/Cad Bilateral CC and MLO view(s) were taken. Prior study comparison: May 13, 2019, bilateral MG 3d screening mammo w/cad. April 01, 2018, bilateral MG 3d screening mammo w/cad. The breast tissue is heterogeneously dense. This may lower the sensitivity of mammography. No significant changes when compared with prior studies. ASSESSMENT: Benign, BI-RAD 2 RECOMMENDATION: Routine screening mammogram of both breasts in 1 year.
== END | disposition home or self-care (01) ==
LOC: RADMAMWWP 16:40
PROVIDERS: ATTEND Obstetrics & Gynecology
DX: Z12.31 Encounter for screening mammogram for malignant neoplasm of breast (principal)
CPT/HCPCS: 77063; 77067

== ENCOUNTER → 2021-07-07 | Outpatient (CLI) | payer MEDICARE ==
--- NOTE | 2021-07-11 14:02 | MM ---
Reason for exam: screening (asymptomatic). Last mammogram was performed 1 year ago. History: Patient is postmenopausal. Benign ultrasound-guided FNA biopsy of the right breast, May 14, 2007. Benign US right guided mammotome of the right breast, May 14, 2007. Benign stereotactic core biopsy of the right breast, August 19, 1999. Core biopsy of the right breast. 2 excisional biopsies of the right breast. Took estrogen. Took progesterone beginning at age 53. Taking other hormone for 1 month beginning at age 58. Physical Findings: A clinical breast exam by your physician is recommended on an annual basis and results should be correlated with mammographic findings. MG 3D Screening Mammo W/Cad Bilateral CC and MLO view(s) were taken. Prior study comparison: July 05, 2020, bilateral MG 3d screening mammo w/cad. May 13, 2019, bilateral MG 3d screening mammo w/cad. The breast tissue is heterogeneously dense. This may lower the sensitivity of mammography. Previous mammotome biopsy in the right breast x 2. There is no discrete abnormality. ASSESSMENT: Negative, BI-RAD 1 RECOMMENDATION: Routine screening mammogram of both breasts in 1 year.
== END | disposition home or self-care (01) ==
LOC: RADMAMWWP 10:56
PROVIDERS: ATTEND Obstetrics & Gynecology
DX: Z12.31 Encounter for screening mammogram for malignant neoplasm of breast (principal); Z78.0 Asymptomatic menopausal state
CPT/HCPCS: 77063; 77067

== ENCOUNTER → 2022-05-25 | Outpatient (CLI) | payer MEDICARE ==
[2022-05-25 18:23] LABS: Basophils # (A) 0.02 X 10*3/uL (0.00-0.10); Basophils % (A) 0.2 %; Eosinophils # (A) 0.02 X 10*3/uL (0.04-0.35); Eosinophils % (A) 0.2 %; HCT 38.4 % (37.2-46.3); HGB 12.4 g/dL (12.0-15.0); Immature Grans, Automated 0.6 %; MCH 28.6 pg (27.0-32.0); MCHC 32.3 g/dL (32.0-37.0); MCV 88.5 fL (80.0-97.0); Mean Platelet Volume 10.3 fL (9.5-12.2); Monocytes # (A) 0.61 X 10*3/uL (0.20-1.00); Monocytes % (A) 6.4 %; NRBC Per 100 WBC 0 /100 WBCS (0.0-0.0); Neutrophils # (A) 7.05 X 10*3/uL (1.80-7.70); Neutrophils % (A) 74.6 %; Platelet Count 262 X 10*3/uL (140-440); RBC 4.34 X 10*6/uL (4.10-5.20); RDW 12.7 % (11.5-14.5); WBC 9.46 X 10*3/uL (4.50-10.00)
[2022-05-25 18:39] LABS: ALT 70 U/L (8-44); AST 35 U/L (13-35); African American GFR (CKD) 75.1 (60.0-200.0); Albumin 4.7 g/dL (3.8-4.9); Albumin/Globulin Ratio 2.04 (1.60-3.17); Alkaline Phosphatase 80 U/L (41-126); BUN/Creat Ratio 19.67 Ratio (12.00-20.00); Blood Urea Nitrogen 17.7 mg/dL (9.0-27.0); Calcium 9.5 mg/dL (8.7-10.3); Carbon Dioxide 29.7 mmol/L (20.0-27.5); Chloride 101 mmol/L (96-109); Chol/HDL Ratio 3.25 Ratio; Globulin 2.3 g/dL (1.6-3.3); Glucose 93 mg/dL (70-110); LDL Cholesterol,Calculated 124.2 mg/dL (0.0-131.0); Non-African American GFR(CKD) 64.8 (60.0-200.0); Potassium 4.8 mmol/L (3.5-5.5); Sodium 140 mmol/L (135-145)
== END | disposition home or self-care (01) ==
LOC: LABWHC1 10:06
PROVIDERS: ATTEND Family Medicine
DX: N18.2 Chronic kidney disease, stage 2 (mild) (principal); I10 Essential (primary) hypertension
CPT/HCPCS: 36415; 80053; 80061; 84443; 85025

== ENCOUNTER → 2022-07-10 | Outpatient (CLI) | payer MEDICARE ==
--- NOTE | 2022-07-10 18:02 | MM ---
Reason for Exam: Screening (asymptomatic). Last screening mammogram was performed 12 month(s) ago. Patient History: Menarche at age 17. First Full-Term at age 28. Postmenopausal. Estrogen, ending at age 57. Progesterone, from age 53 until age 57. Core Biopsy on the Right side. Excisional Biopsy on the Right side. Excisional Biopsy on the Right side. 05/14/2007, Benign Ultrasound-Guided FNA Biopsy on the right side. 05/14/2007, Benign Core Biopsy on the right side. 08/19/1999, Benign Stereotactic Core Biopsy on the right side. Risk Values: Jannie 5 year model risk: 2.6%. NCI Lifetime model risk: 7.6%. Prior Study Comparison: 05/13/2019 Bilateral Screening Mammogram, [facility]. 07/05/2020 Bilateral Screening Mammogram, [facility]. 07/07/2021 Bilateral Screening Mammogram, [facility]. Tissue Density: The breast tissue is heterogeneously dense. This may lower the sensitivity of mammography. Findings: Analyzed By CAD. 2 microclips on the right from prior biopsies. There is no suspicious group of microcalcifications or new suspicious mass in either breast. Overall Assessment: Benign, BI-RAD 2 Management: Screening Mammogram of both breasts in 1 year. 1. Patient should continue monthly self breast exams. 2. A clinical breast exam by your physician is recommended on an annual basis. 3. This exam should not preclude additional follow-up of suspicious palpable abnormalities. Electronically signed and approved by: Freddy Ramos M.D. Radiologist
== END | disposition home or self-care (01) ==
LOC: RADMAMWWP 08:01
PROVIDERS: ATTEND Obstetrics & Gynecology
DX: Z12.31 Encounter for screening mammogram for malignant neoplasm of breast (principal); Z78.0 Asymptomatic menopausal state
CPT/HCPCS: 77063; 77067

== ENCOUNTER → 2022-09-28 | Outpatient (CLI) | payer MEDICARE ==
--- NOTE | 2022-09-28 14:30 | BD ---
EXAMINATION TYPE: Axial Bone Density DATE OF EXAM: 09/28/2022 CLINICAL HISTORY: 72 years old Female. ICD-10 CODE: M85.88 OSTEOPENIA Height: 63.5 Weight: 127.5 FRAX RISK QUESTIONS: Alcohol (3 or more units per day): no Family History (Parent hip fracture): no Glucocorticoids (More than 3mos): no History of Fracture in Adulthood: no Secondary Osteoporosis: 1. Type 1 Diabetes: no 2. Hyperthyroidism: no 3. Menopause before 45: no 4. Malnutrition: no 5. Chronic liver disease: no Rheumatoid Arthritis: no Current Tobacco Use: no RISK FACTORS HISTORY OF: Hip Fracture (Right/Left): no Spine Fracture: no History of Wrist Fracture: no Surgery to Spine/Hip(right/left)/Wrist (right/left): no Family History of Osteoporosis: mother Active: yes Diet low in dairy products/other sources of calcium: no Postmenopausal woman: yes Take estrogen and/or progesterone medications: no Lost more than 2 inches in height since high school: no Frequent falls: no Poor Health: no Hyperparathyroidism: no Adrenal Insufficiency: no MEDICATIONS: Prednisone or other steroids: no Thyroid Medications: no Osteoporosis Medications: no Additional Medications: Vit D., Calcium, BP Meds x3, Additional History: EXAM MEASUREMENTS: Bone mineral densitometry was performed using the [employer] System. Bone mineral density as measured about the Lumbar spine is: ----- L1-L4(G/cm2): 0.998 T Score Values are as follows: ----- L1: -2.5 ----- L2: -2.1 ----- L3: -0.9 ----- L4: -1.0 ----- L1-L4: -1.5 Z Score Values are as follows: ----- L1: -0.6 ----- L2: -0.2 ----- L3: 1.0 ----- L4: 0.9 ----- L1-L4: 0.4 Bone mineral density has: increased 1.3% since the study of 07/05/2020 Bone mineral density about the R hip (g/cm2): 0.794 Bone mineral density about the L hip (g/cm2): 0.790 T Score values are as follows: -----R Neck: -2.0 -----L Neck: -1.7 -----R Total: -1.7 -----L Total: -1.7 Z Score values are as follows: -----R Neck: -0.2 -----L Neck: 0.1 -----R Total: 0.0 -----L Total: -0.1 Bone mineral density has: unchanged since the study of 07/05/2020 FRAX%s: The graph provided illustrates a 11.4%chance for a major osteoporotic fx and a 2.4% chance fo r the hips probability for fx in 10 years time. IMPRESSION: Osteopenia, borderline osteoporosis. (T Score between -2.5 and -1). There is slightly increased risk of fracture and the patient may be considered for treatment. Re-Screen 2-5 years. NOTE: T-SCORE=SD OF THE YOUNG ADULT MEAN.
== END | disposition home or self-care (01) ==
LOC: RADBDWWP 09:06
PROVIDERS: ATTEND Obstetrics & Gynecology
DX: M81.0 Age-related osteoporosis without current pathological fracture (principal); M85.88 Other specified disorders of bone density and structure, other site; Z78.0 Asymptomatic menopausal state
CPT/HCPCS: 77080

== ENCOUNTER → 2023-07-11 | Outpatient (CLI) | payer MEDICARE ==
--- NOTE | 2023-07-13 13:33 | MM ---
Reason for Exam: Screening (asymptomatic). Last screening mammogram was performed 12 month(s) ago. Patient History: Menarche at age 17. First Full-Term at age 28. Postmenopausal. Estrogen, ending at age 57. Progesterone, from age 53 until age 57. Core Biopsy on the Right side. Excisional Biopsy on the Right side. Excisional Biopsy on the Right side. 05/14/2007, Benign Ultrasound-Guided FNA Biopsy on the right side. 05/14/2007, Benign Core Biopsy on the right side. 08/19/1999, Benign Stereotactic Core Biopsy on the right side. Risk Values: Jannie 5 year model risk: 2.6%. NCI Lifetime model risk: 7.3%. Prior Study Comparison: 07/05/2020 Bilateral Screening Mammogram, [facility]. 07/07/2021 Bilateral Screening Mammogram, [facility]. 07/10/2022 Bilateral MG 3D screening mammo w/cad, [facility]. Tissue Density: The breast tissue is heterogeneously dense. This may lower the sensitivity of mammography. Findings: Analyzed By CAD. Right breast biopsy clip. There is no suspicious group of microcalcifications or new suspicious mass. Overall Assessment: Benign, BI-RAD 2 Management: Screening Mammogram of both breasts in [address] [facility] will attempt to contact patient to return for supplemental views and ultrasound if indicated. Patient should continue monthly self-breast exams. A clinical breast exam by your physician is recommended on an annual basis. This exam should not preclude additional follow-up of suspicious palpable abnormalities. Note on Jannie scores and lifetime risk: 1. A Jannie score greater than 3% is considered moderate risk. If this is the case, consider specialist referral to assess eligibility for a risk reducing agent. 2. If overall lifetime risk for the development of breast cancer is 20% or higher, the patient may qualify for future screening with alternating mammogram and breast MRI. Electronically signed and approved by: Jona Thrasher DO
== END | disposition home or self-care (01) ==
LOC: RADMAMWWP 10:36
PROVIDERS: ATTEND Obstetrics & Gynecology
DX: Z12.31 Encounter for screening mammogram for malignant neoplasm of breast (principal); Z78.0 Asymptomatic menopausal state
CPT/HCPCS: 77063; 77067

== ENCOUNTER → 2023-08-21 | Outpatient (CLI) | payer MEDICARE ==
--- NOTE | 2023-08-21 15:48 | XR ---
EXAMINATION TYPE: XR abdomen 1V DATE OF EXAM: 08/21/2023 COMPARISON: NONE HISTORY: Pain TECHNIQUE: One view abdominal series FINDINGS: The osseous structures are intact. The bowel gas pattern is nonspecific. Lung bases are clear. Sera ined fecal debris throughout the colon correlate for constipation. Degenerative change of the spine. Arthropathy of the hips. Nonspecific calcifications in the soft tissues. IMPRESSION: 1. Nonspecific abdomen. Correlate for constipation.
== END | disposition home or self-care (01) ==
LOC: RADXRMAIN 15:05
PROVIDERS: ATTEND Physician Assistant
DX: R10.9 Unspecified abdominal pain (principal)
CPT/HCPCS: 74018

== ENCOUNTER → 2023-12-11 | Outpatient (CLI) | payer MEDICARE ==
[2023-12-11 13:11] LABS: African American GFR (CKD) 81 (>60 ml/min/1.73 sqM); Blood Urea Nitrogen 15 mg/dL (7-17); Non-African American GFR(CKD) 70 (>60 ml/min/1.73 sqM)
--- NOTE | 2023-12-17 09:34 | CT ---
EXAMINATION TYPE: CT abdomen pelvis w con DATE OF EXAM: 12/11/2023 COMPARISON: 02/28/2013 INDICATION: LLQ pain, swelling, having trouble eating, feels full after only a small bit DLP: 421.40 mGycm, Automated exposure control for dose reduction was used. CONTRAST: 100 mL of Isovue 300. Study performed with Oral Contrast TECHNIQUE: Axial images were obtained from above the diaphragm to the pubic rami in the axial plane a t 5 mm thick sections. Reconstructed images are reviewed on the computer in the coronal plane. FINDINGS: Limited CT sections are obtained the lung bases. The lung bases are clear. Pectus excavatum is pres ent. CT ABDOMEN: Multiple enlarged lymph nodes in the periaortic and retrocaval regions. Diffuse nodularit y is through the mesentery compatible with additional lymphadenopathy. This is larger in the mid to l eft lower abdomen finding measuring 11.5 x 3.8 cm may account for the patient's palpable abnormality Liver: Normal Spleen: Normal Pancreas: Normal Adrenal glands: The adrenal glands are normal. Gallbladder: Normal Kidneys: No masses are evident. No hydronephrosis is present. No cysts are present. Delayed images were obtained through the kidneys, which remain unremarkable. Aorta: Vascular calcification is within the aorta. Inferior vena cava: Normal. CT PELVIS: Loops of bowel within the abdomen and pelvis are normal. There are loops of bowel which are incom pletely distended or lack oral contrast limiting their evaluation. Appendix: Not identified Urinary bladder: Normal. Genitourinary structures: Uterus is normal. Left adnexa may has some prominent venous structures. Osseous structures: No suspicious lytic or sclerotic lesions. Facet degenerative changes are present. IMPRESSION: 1. Multiple enlarged lymph nodes within the mesentery para-aortic and retrocaval regions. Additional workup for lymphoma is recommended. PET CT could further evaluate findings. A [place] level critical message alert has been initiated for Terri Sun MD~[id number] via the [employer] Critical Results System on 12/17/2023 9:31 AM. This message alert has been sent to SUKDHEV AllisonGBRaoul via the preferences provided by the clinician for the receipt of Radiology Critical Find ings. Message ID [id number].
== END | disposition home or self-care (01) ==
LOC: RADCTMAIN 12:25
PROVIDERS: ATTEND Family Medicine
DX: R59.9 Enlarged lymph nodes, unspecified (principal); R19.04 Left lower quadrant abdominal swelling, mass and lump
CPT/HCPCS: 82565; 84520; 74177; 36415; Q9967

== ENCOUNTER → 2023-12-24 | Outpatient (CLI) | payer MEDICARE ==
--- NOTE | 2023-12-25 08:54 | PE ---
EXAMINATION TYPE: PET CT fusion skull to thigh DATE OF EXAM: 12/24/2023 CLINICAL INDICATION:Female, 73 years old with history of R59.1 GENERALIZED ENLARGED LYMPH NODES; TECHNIQUE: Following the intravenous administration of 8.29 mCi of F-18 FDG, whole body images are performed from the skull base to the midthigh. Images are reviewed on the computer in the coronal, a xial, and sagittal planes. Reconstructed rotating images are created on independent workstation and reviewed on the computer. A non-contrast CT is performed in conjunction with the PET scan. Glucose level 84 mg/dL CT DLP: 187 mGycm, Automated exposure control for dose reduction was used. COMPARISON: CT 12/11/2023, PET/CT None, FINDINGS: Mediastinal SUV mean is 1.8. Hepatic parenchyma SUV mean is 2.3. SKULL BASE AND NECK: * Left neck lymph node measuring 3.4 x 2.6 cm Max SUV 18.2. * Left shoulder lymph node/axilla measuring 9 mm Max SUV 4.5 * Left subpectoral lymph node max SUV 6.1 measurements difficult difficult given its location and la ck of IV contrast. * At least 2 lymph nodes in the left submandibular gland max SUV 7.6. CHEST, MEDIASTINUM, AND HILAR REGION: Abnormal lymph nodes including: * Left paraspinal max SUV 8.6 along the sympathetic chain. * Posterior carinal max SUV 6.7 * Left periaortic more inferiorly max SUV 17.7 ABDOMEN AND PELVIS: Retroperitoneal lymphadenopathy near the leigh of diaphragm on the left measuring Max SUV 14.6 and on the right max SUV 9.4. Anteriorly max SUV 14.0. Abnormal lymph nodes around the upper abdomen max SUV 20.4. Lymph nodes extend up throughout the mesentery max SUV of the conglomerate lymphadenopathy 21. 1. Measurements given are difficult with lack of IV and oral contrast. Conglomerate lymphadenopathy a t least 9.0 x 3.2 cm. MUSCULOSKELETAL STRUCTURES: Abnormal uptake within the sacrum on the right max SUV 6.[address]: Atherosclerosis of the arterial vascular. Mild pectus excavatum. IMPRESSION: * Diffuse lymphadenopathy involving the neck, sympathetic chain/mediastinum, and throughout the abdo men concerning for lymphoma versus other she sampling recommended. Consideration for large left parat hyroid lymph node may be easiest access. * Abnormal uptake within the sacrum possibly representing bony involvement.
== END | disposition home or self-care (01) ==
LOC: RADXRMAIN 12:33
PROVIDERS: ATTEND Family Medicine
DX: R59.0 Localized enlarged lymph nodes (principal)
CPT/HCPCS: 78815; A9552

== ENCOUNTER 2024-01-14 11:30 | Day surgery (SDC) | payer MEDICARE ==
[~2024-01-14 11:30] MED LIST changes: -ACETAMINOPHEN TAB 500 MG TAB PO ONE; -DEXAMETHASONE SOD PHOSPHATE 10 MG/ML 1 ML VIAL IV ONE; -DEXAMETHASONE SOD PHOSPHATE 4 MG/ML 1 ML VIAL IV ONE; -FAMOTIDINE 20 MG/2 ML VIAL IV ONE; +HYDROmorphone 0.5 MG/0.5 ML SYRINGE IVP PRN; -LACTATED RINGERS 1,000 ML IV SCH; -LIDOCAINE 1% 20 ML VIAL (10MG/ML) FOR IV START INTRADERMA PRN; -MIDAZOLAM 2 MG/2 ML VIAL IV PRN; -ONDANSETRON 4 MG/2 ML VIAL IVP ONE; +Pre Op ABX Message 1 EACH MISC MISCELLANE ONE; -SCOPOLAMINE 1.5MG/72HR PATCH TRANSDERM ONE
[2024-01-14 12:01] VITALS: TEMP 98.1
[2024-01-14] MEDS: ACETAMINOPHEN TAB 500 MG TAB PO PRN (12:11)
[2024-01-14] MEDS: LACTATED RINGERS 1,000 ML IV SCH (12:11)
[2024-01-14] MEDS: HEPARIN SODIUM,PORCINE 5,000 UNIT/ML 1 ML VIAL SQ PRN (12:12)
[2024-01-14] MEDS: ONDANSETRON 4 MG/2 ML VIAL IVP ONE (12:12)
[2024-01-14] MEDS: DEXAMETHASONE SOD PHOSPHATE 4 MG/ML 1 ML VIAL IV ONE (12:12)
[2024-01-14] MEDS: IV FLUID CONTINUATION 1,000 ML IV ONE (12:14)
--- NOTE | 2024-01-14 12:31 | P.HPADDEND ---
H&P Addendum H&P Addendum Date: 01/14/24 Patient's PET scan recently reviewed. The left axillary lymph node lights up nicely as well. On exam the left axillary lymph node is more palpable today than it was last week. Will switch from cervical to left axillary lymph node for site of excision of the suspicious node.
[2024-01-14] MEDS ORDERED: ceFAZolin 1 GM/50 ML BAG (PMX) ONE (12:36)
[2024-01-14] MEDS ORDERED: LIDOCAINE 1% INJ 10MG/ML (20 ML MDV) ONE (12:36)
[2024-01-14] MEDS ORDERED: MIDAZOLAM 2 MG/2 ML VIAL ONE (12:36)
[2024-01-14] MEDS ORDERED: fentaNYL (PF) 50 MCG/ML 2 ML AMP ONE (12:36)
[2024-01-14] MEDS ORDERED: PROPOFOL 10 MG/ML 20 ML VIAL IV ONE (12:36)
[2024-01-14] MEDS: SODIUM CHLORIDE 0.9% 50 ML with ceFAZolin 2,000 MG IV ONE (12:40)
[2024-01-14] MEDS: BUPIVACAINE (PF) 0.25% 30 ML VIAL SQ ONE ×2 (13:04)
[2024-01-14] MEDS ORDERED: NALOXONE 0.4 MG/ML 1 ML VIAL IV PRN (13:25)
--- NOTE | 2024-01-14 13:29 | P.OP ---
Date of Procedure: 01/14/24 Procedure(s) Performed: PREOPERATIVE DIAGNOSIS: Left axillary lymphadenopathy POSTOPERATIVE DIAGNOSIS: Same PROCEDURE: Excision left axillary lymph node SURGEON: Jaida EBL: 5 cc ANESTHESIA: General COMPLICATIONS: None OPERATIVE PROCEDURE: Patient placed supine. Patient's left axilla prepped and draped sterilely. Curvilinear incision made along the axillary hairline. Subcutaneous layer divided using electrocautery. Palpable lymph node identified and able to be fully dissected using both blunt dissection and cautery. Small lymphatics clipped with the Ligaclip. Sent to pathology as a fresh specimen for microscopic and flow cytometry. Operative field inspected. No bleeding seen. Subcutaneous layer closed using 3-0 Vicryl sutures. Skin closed using 4-0 Monocryl sutures. Skin glue and sterile dressings applied. DISPOSITION: Stable to recovery room
[2024-01-14 13:34] VITALS: RESP 16
[2024-01-14] MEDS: traMADol 50 MG TAB PO PRN (14:38)
[2024-01-14 15:03] VITALS: BP 127/69; PULSE 64
== END 2024-01-14 15:15 | disposition home or self-care (01) ==
LOC: OR 11:30
PROVIDERS: ATTEND Surgery
DX: C82.34 Follicular lymphoma grade IIIa, lymph nodes of axilla and upper limb (principal)
CPT/HCPCS: 38500; 88342; 88307; 88341; J2250; J1644; J1100; J2405; J0690 ×2; J2001; J3010; J2704; J0665

== ENCOUNTER 2024-02-24 16:26 | Emergency (ER) | payer MEDICARE ==
[2024-02-24] MEDS ORDERED: ACETAMINOPHEN TAB 325 MG TAB ONE (18:27)
--- NOTE | 2024-04-01 13:59 | XR ---
[id number] VIKI HARDIN : 1950 EXAM: Frontal and lateral view of the chest. DATE: 02/24/2024 20:01 INDICATION: RASH, FEVER COMPARISON: None, please note PACS downtime occurred during the radiologist interpretation of these i mages with limited priors/reports.. TECHNIQUE: Frontal and lateral views of the chest. FINDINGS: Lungs/Pleura: Poor visualization of the right heart border. There is no evidence of pleural effusion, focal consolidation, or pneumothorax. Pulmonary vascularity: Unremarkable. Heart/mediastinum: Cardiomediastinal silhouette is unremarkable. Musculoskeletal: No acute osseous pathology. Other findings: No significant findings. IMPRESSION: Poor visualization of the right heart border unclear if this projection. Correlate for pneumonia. [facility], , 04/01/2024 1:56 PM
--- NOTE | 2024-04-01 13:59 | XR ---
[id number] VIKI HARDIN : 1950 EXAM: 2 view of the neck. DATE: 02/24/2024 17:50 INDICATION: RASH, FEVER COMPARISON: None, please note PACS downtime occurred during the radiologist interpretation of these i mages with limited priors/reports. TECHNIQUE: The soft tissues of the neck were imaged in 2 views. FINDINGS: The prevertebral soft tissues are unremarkable. There is no evidence of mass effect or trac heal deviation. Degenerative disc disease with endplate sclerosis and disc space narrowing is noted t hroughout the cervical spine. No acute osseous abnormality demonstrated. IMPRESSION: No significant abnormality identified within the soft tissues of the neck. [facility], , 04/01/2024 1:57 PM
== END 2024-02-24 18:56 | disposition home or self-care (01) ==
LOC: EC 16:26
CPT/HCPCS: 70360; 71046

== ENCOUNTER → 2024-04-24 | Outpatient (CLI) | payer MEDICARE ==
--- NOTE | 2024-04-24 22:58 | PE ---
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 Images are reviewed on the computer in the coronal, axial, and sagittal planes. Reconstructed rotating images are created on independent workstation and reviewed on the computer. A non-contrast CT is performed in conjunction with the PET scan. Glucose level 99 mg/dL CT DLP: 238.26 mGycm, Automated exposure control for dose reduction was used. COMPARISON: CT 12/11/2023, PET/CT 12/24/2023, MRI: None FINDINGS: Mediastinal SUV mean is 2.2. Hepatic parenchyma SUV mean is 2.8. SKULL BASE AND NECK: * Left neck lymph node is markedly decreased in size now measuring up to 0.9 cm previously 3.4 cm. D emonstrates a max SUV of 2.7, previously 18.2. * Previously seen left shoulder/axillary lymph node is no longer visualized with biopsy clip demonst rated. This region demonstrates a maximum SUV of 1.1, previously 4.5. * Left subpectoral lymph node is no longer visualized. This region demonstrates a maximum 1.8, previ ously 6.1. * At least 2 left-sided submandibular lymph nodes measuring up to 0.6 cm with a maximum SUV of 2.4, previously 7.6. CHEST, MEDIASTINUM, AND HILAR REGION: Decreased size of previously seen lymphadenopathy: * Left paraspinal lymph node is poorly visualized with a maximum SUV of 2.1 in this region, previous ly 8.6. * Posterior carinal lymph node has decreased in size and now demonstrates a maximum of 1.8, previous ly 6.7. * Left periaortic more inferiorly lymph node has decreased in size with a maximum SUV now of 2.6, pr eviously 14.4. ABDOMEN AND PELVIS: Decrease in size of retroperitoneal/mediastinal lymphadenopathy from prior examination measuring less than 1 cm short axis now. Examples include a decreased size lymph node near the leigh the diaphragm m easuring 2.1 maximum SUV, previously 14.6. Greatest SUV in the retroperitoneum measures 2.5, previously 20.4. Greatest SUV within the mesentery measures 2.1, previously 21.1. MUSCULOSKELETAL STRUCTURES: Decreased radiotracer uptake involving the right sacrum measuring maximum SUV 2.7, previously 6.0. Mild uptake identified at the bilateral facet joints of L4-L5 with a maximum SUV of. Favored to repre sent inflammatory changes. OTHER CT: Atherosclerosis of the arterial vascular. Mild pectus excavatum. Calcified fibroid changes of the uterus with retroverted uterus. Pelvic phleboliths. IMPRESSION: * Marked positive response to therapy with significant decrease in size of diffuse lymphadenopathy n ow measuring less than 1 cm short axis. Radiotracer uptake is essentially a background now. * Decreased uptake within the sacrum now at background. [facility], , 04/24/2024 10:56 PM
== END | disposition home or self-care (01) ==
LOC: RADPETMAIN 12:21
PROVIDERS: ATTEND Internal Medicine Hematology & Oncology
DX: C82.98 Follicular lymphoma, unspecified, lymph nodes of multiple sites (principal); R59.1 Generalized enlarged lymph nodes; Q67.6 Pectus excavatum; I87.8 Other specified disorders of veins; I70.8 Atherosclerosis of other arteries; R59.0 Localized enlarged lymph nodes
CPT/HCPCS: 78815; A9552

== ENCOUNTER → 2024-06-18 | Outpatient (CLI) | payer MEDICARE ==
[2024-06-18 10:21] LABS: African American GFR (CKD) 79 (>60 ml/min/1.73 sqM); Blood Urea Nitrogen 13 mg/dL (7-17); Non-African American GFR(CKD) 68 (>60 ml/min/1.73 sqM)
--- NOTE | 2024-06-18 11:23 | CT ---
EXAMINATION TYPE: CT sinus w con DATE OF EXAM: 06/18/2024 10:49 AM COMPARISON: None. 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 Reconstruct ed images in the coronal plane were obtained. Contrast used:100 mL of Isovue 300 with IV Contrast, (none if empty) Oral contrast used: (none if empty) CT DLP: 435.9 mGycm, Automated exposure control for dose reduction was used. FINDINGS: There is dental amalgam scatter artifact There is mild medial mucosal thickening within the left maxillary sinus. Partial septations are prese nt anteriorly. Prior uncinectomies been performed. Partial ethmoidectomies are present. Minimal mucos al thickening is within residual ethmoid air cells. Sphenoid sinuses are clear. Frontal sinuses are c lear. The septum is evaluated. There is septal deviation to the right. No suspicious lymphadenopathy evident. IMPRESSION: 1. Mild mucosal thickening left maxillary sinus. 2. Bilateral uncinectomies. 3. No suspicious acute or chronic sinusitis. 4. No suspicious masses [facility], Workstation: [id number], 06/18/2024 11:20 AM
== END | disposition home or self-care (01) ==
LOC: RADCTMAIN 09:22
PROVIDERS: ATTEND Internal Medicine Hematology & Oncology
DX: I10 Essential (primary) hypertension (principal); J34.89 Other specified disorders of nose and nasal sinuses; C82.98 Follicular lymphoma, unspecified, lymph nodes of multiple sites; R59.0 Localized enlarged lymph nodes
CPT/HCPCS: 82565; 84520; 36415; 70487; Q9967

== ENCOUNTER → 2024-07-17 | Outpatient (CLI) | payer MEDICARE ==
--- NOTE | 2024-07-21 07:40 | MM ---
Reason for Exam: Screening (asymptomatic). Last mammogram was performed 1 year(s) and 1 month(s) ago. Patient History: Menarche at age 17. First Full-Term at age 28. Postmenopausal. Estrogen, ending at age 57. Progesterone, from age 53 until age 57. Core Biopsy on the Right side. Excisional Biopsy on the Right side. Excisional Biopsy on the Right side. 05/14/2007, Benign Ultrasound-Guided FNA Biopsy on the right side. 05/14/2007, Benign Core Biopsy on the right side. 08/19/1999, Benign Stereotactic Core Biopsy on the right side. Risk Values: Jannie 5 year model risk: 2.7%. NCI Lifetime model risk: 6.9%. Prior Study Comparison: 07/07/2021 Bilateral Screening Mammogram, [facility]. 07/10/2022 Bilateral MG 3D screening mammo w/cad, [facility]. 07/11/2023 Bilateral MG 3D screening mammo w/cad, [facility]. Tissue Density: The breasts are extremely dense, which lowers the sensitivity of mammography. Findings: Analyzed By CAD. Right breast biopsy clips. Right breast: There is no suspicious group of microcalcifications or new suspicious mass. Left breast: There is no suspicious group of microcalcifications or new suspicious mass. Overall Assessment: Negative, BI-RAD 1 Management: Screening Mammogram of both breasts in [address] [facility] will attempt to contact patient to return for supplemental views and ultrasound if indicated. Patient should continue monthly self-breast exams. A clinical breast exam by your physician is recommended on an annual basis. This exam should not preclude additional follow-up of suspicious palpable abnormalities. Note on Jannie scores and lifetime risk: 1. A Jannie score greater than 3% is considered moderate risk. If this is the case, consider specialist referral to assess eligibility for a risk reducing agent. 2. If overall lifetime risk for the development of breast cancer is 20% or higher, the patient may qualify for future screening with alternating mammogram and breast MRI. [facility], , 07/21/2024 7:37 AM. Electronically signed and approved by: Jona Thrasher DO
== END | disposition home or self-care (01) ==
LOC: RADMAMWWP 16:13
PROVIDERS: ATTEND Internal Medicine Geriatric Medicine
DX: Z12.31 Encounter for screening mammogram for malignant neoplasm of breast (principal); Z78.0 Asymptomatic menopausal state; R92.343 Mammographic extreme density, bilateral breasts; Z98.82 Breast implant status
CPT/HCPCS: 77063; 77067

== ENCOUNTER → 2024-07-25 | Outpatient (CLI) | payer MEDICARE ==
--- NOTE | 2024-07-28 09:28 | PE ---
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 Images are reviewed on the computer in the coronal, axia l, and sagittal planes. Reconstructed rotating images are created on independent workstation and rev iewed on the computer. A localization and attenuation correction CT is performed in conjunction wit h the PET scan. DLP: 230.86 mGycm SCAN: Subsequent Blood glucose: 94 mg/dL Average Mediastinum SUV: 1.8 Average Liver SUV: 2.33 FINDINGS: NECK: No abnormal uptake THORAX: No abnormal uptake ABDOMEN: No abnormal uptake PELVIS: No abnormal uptake OSSEOUS STRUCTURES: No abnormal uptake LOCALIZATION CT: Note is made of pectus excavatum. Calcified fibroid may be within the uterus. COMPARISON: Exam appears unchanged IMPRESSION: 1. No suspicious uptake to suggest recurrent or residual neoplasm [facility], , 07/28/2024 9:25 AM
== END | disposition home or self-care (01) ==
LOC: RADPETMAIN 10:17
PROVIDERS: ATTEND Family Medicine
DX: C82.98 Follicular lymphoma, unspecified, lymph nodes of multiple sites (principal)
CPT/HCPCS: 78815; A9552

== ENCOUNTER → 2024-11-26 | Outpatient (CLI) | payer MEDICARE ==
[2024-11-26 14:07] LABS: African American GFR (CKD) 76 (>60 ml/min/1.73 sqM); Blood Urea Nitrogen 16 mg/dL (7-17); Non-African American GFR(CKD) 66 (>60 ml/min/1.73 sqM)
--- NOTE | 2024-11-26 14:41 | CT ---
EXAMINATION TYPE: CT sinus wo/w con DATE OF EXAM: 11/26/2024 COMPARISON: 06/18/2024 CLINICAL INDICATION: Female, 74 years old with history of C82.92 follicular lymphoma; PHH, sinus head aches, pain TECHNIQUE: CT scan of the sinuses is performed without contrast, axial images are obtained, coronal r eformatted images are also reviewed. CT DLP: 924.[address] CTDI: mGy Automated exposure control for dose reduction was used. FINDINGS: There are postsurgical changes of endoscopic sinus surgery. There is mild persistent mucosal thickening in the left maxillary sinus. There are no air-fluid levels suggest acute sinusitis. Intraorbital contents appear normal and symmet gerald. The mastoid air cells and middle ear cavities are well-aerated IMPRESSION: 1. Postsurgical changes of endoscopic sinus surgery. 2. Stable mild mucosal thickening left maxillary sinus. 3. No acute sinusitis.. [facility], , 11/26/2024 2:38 PM
== END | disposition home or self-care (01) ==
LOC: RADCTMAIN 13:23
PROVIDERS: ATTEND Internal Medicine Hematology & Oncology
DX: C82.98 Follicular lymphoma, unspecified, lymph nodes of multiple sites (principal); I10 Essential (primary) hypertension; R59.0 Localized enlarged lymph nodes; J34.89 Other specified disorders of nose and nasal sinuses; Z98.890 Other specified postprocedural states
CPT/HCPCS: 82565; 84520; 36415; 70488; Q9967